=== PATIENT | male | born 1975 | race Caucasian/White ===

== ENCOUNTER 2024-07-14 19:40 | Emergency (ER) | payer OTHER ==
[~2024-07-14] VITALS: Ht 185.4 cm; Wt 104.3 kg
[2024-07-14] MEDS ORDERED: Tdap Vaccine 0.5 ML SYR (Adult Vaccine) IM ONE (19:50)
[2024-07-14] MEDS ORDERED: SODIUM CHLORIDE 0.9% 1,000 ML IV ONE (19:50)
[2024-07-14] MEDS ORDERED: MORPHINE Sulfate 2 MG/ML SYR IV ONE ×2 (19:50→23:15)
[2024-07-14] MEDS ORDERED: CEPHALEXIN500 M1 PO (23:19)
== END 2024-07-14 23:36 | disposition home or self-care (01) ==
LOC: ED 19:40
DX: S01.81XA Laceration without foreign body of other part of head, initial encounter (principal); R07.81 Pleurodynia; Z88.0 Allergy status to penicillin; V86.55XA Driver of 3- or 4- wheeled all-terrain vehicle (ATV) injured in nontraffic accident, initial encounter; Y93.89 Activity, other specified; Y92.410 Unspecified street and highway as the place of occurrence of the external cause; Y99.8 Other external cause status